=== PATIENT | male | born 1965 | race American Indian/Alaskan Native ===

== ENCOUNTER 2018-05-14 17:37 | Emergency (ER) | payer OTHER ==
[2018-05-14] MEDS: MOTRIN PO ONE (20:41)
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
[2018-05-14] MEDS: BOOSTRIX IM ONE (21:25)
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
[2018-05-14] MEDS ORDERED: TRIPLE ANTIBIOTIC TP ONE (23:42)
[2018-05-15] VITALS: BP 134/90
== END 2018-05-15 | disposition home or self-care (01) ==
LOC: ED 17:37
DX: S13.4XXA Sprain of ligaments of cervical spine, initial encounter (principal); S66.912A Strain of unspecified muscle, fascia and tendon at wrist and hand level, left hand, initial encounter; S46.912A Strain of unspecified muscle, fascia and tendon at shoulder and upper arm level, left arm, initial encounter; S39.012S Strain of muscle, fascia and tendon of lower back, sequela; V49.49XA Driver injured in collision with other motor vehicles in traffic accident, initial encounter; Y93.89 Activity, other specified; Y92.89 Other specified places as the place of occurrence of the external cause; Y99.8 Other external cause status
CPT/HCPCS: 72040; 72100; 90471; 90715; A6250

== ENCOUNTER 2019-02-25 14:26 | Emergency (ER) | payer OTHER ==
--- NOTE | 2019-02-25 15:16 | Emergency Department Report ---
Blank Doc - Documentation Documentation: This is a 53-year-old male that presents with dysuria x2 weeks. Denies any back pain. This initial assessment/diagnostic orders/clinical plan/treatment(s) is/are subject to change based on patient's health status, clinical progression and re- assessment by fellow clinical providers in the ED. Further treatment and workup at subsequent clinical providers discretion. Patient/guardians urged not to elope from the ED as their condition may be serious if not clinically assessed and managed. Initial orders include: 1- Patient sent to [facility] for further evaluation and treatment 2- UA
[2019-02-25 16:15] LABS: Bilirubin,Urine NEG (Negative); Blood,Urine NEG (Negative); Color,Urine Yellow (Yellow); Protein,Urine <15 mg/dL mg/dL (Negative)
[2019-02-25] MEDS ORDERED: XYLOCAINE 1% MPF 5 mL INFILTRATI ONE (17:48)
[2019-02-25] MEDS ORDERED: ROCEPHIN IM ONE (17:48)
[2019-02-25] MEDS ORDERED: ZITHROMAX PO ONE (17:48)
--- NOTE | 2019-02-25 17:52 | Emergency Department Report ---
ED Male HPI - General Chief complaint: Urogenital-Male Stated complaint: BURN WITH URINATING Time Seen by Provider: 02/25/19 15:15 Source: patient Mode of arrival: Ambulatory Limitations: No Limitations - History of Present Illness Initial comments: 53-year-old male presents with dysuria 2 weeks. Patient denies fever assess shows sinus penile discharge, penile lesions, testicular swelling or pain. Patient just states that he has pain whenever he urinates and sometimes without urination. Patient states that his bowel movements are normal with no pain MD Complaint: dysuria -: week(s) Radiation: none Severity: moderate Quality: burning Worsens with: urination, movement denies other symptoms. denies: discharge, swelling, rash, urinary retention, blood in urine, fever, nausea/vomiting, incontinence - Related Data Previous Rx's Medication Instructions Recorded Last Taken Type Cyclobenzaprine [Flexeril] 10 mg PO BID PRN #14 tablet 05/14/18 Unknown Rx Ibuprofen [Motrin 600 MG tab] 600 mg PO Q8H PRN #30 tablet 02/25/19 Unknown Rx Phenazopyridine [Pyridium] 200 mg PO BID #12 tab 02/25/19 Unknown Rx Allergies Allergy/AdvReac Type Severity Reaction Status Date / Time No Known Allergies Allergy Unverified 05/14/18 17:51 ED Review of Systems ROS: Stated complaint: BURN WITH URINATING Other details as noted in HPI Comment: All other systems reviewed and negative ED Past Medical Hx - Past Medical History Additional medical history: Fx. right mandible, High cholesterol - Surgical History Additional Surgical History: right mandible surgery - Social History Smoking Status: Never Smoker Substance Use Type: None - Medications Home Medications: Home Medications Medication Instructions Recorded Confirmed Last Taken Type Cyclobenzaprine [Flexeril] 10 mg PO BID PRN #14 tablet 05/14/18 Unknown Rx Ibuprofen [Motrin 600 MG tab] 600 mg PO Q8H PRN #30 tablet 02/25/19 Unknown Rx Phenazopyridine [Pyridium] 200 mg PO BID #12 tab 02/25/19 Unknown Rx ED Physical Exam - General Limitations: No Limitations General appearance: alert, in no apparent distress - Head Head exam: Present: atraumatic, normocephalic - Eye Eye exam: Present: normal appearance - ENT ENT exam: Present: mucous membranes moist - Neck Neck exam: Present: normal inspection - Respiratory Respiratory exam: Present: normal lung sounds bilaterally. Absent: respiratory distress - Cardiovascular Cardiovascular Exam: Present: regular rate, normal rhythm. Absent: systolic murmur, diastolic murmur, rubs, gallop - GI/Abdominal GI/Abdominal exam: Present: soft, normal bowel sounds - Rectal Rectal exam: Present: deferred - Extremities Exam Extremities exam: Present: normal inspection - Back Exam Back exam: Present: normal inspection - Neurological Exam Neurological exam: Present: alert, oriented X3 - Psychiatric Psychiatric exam: Present: normal affect, normal mood - Skin Skin exam: Present: warm, dry, intact, normal color. Absent: rash ED Course Vital Signs 02/25/19 15:16 Temperature 98.3 F Pulse Rate 74 Respiratory 20 Rate Blood Pressure 145/98 O2 Sat by Pulse 99 Oximetry ED Medical Decision Making - Medical Decision Making 53-year-old male presents with STD possible exposure with dysuria. ED course: Urinalysis obtained, clean Patient received 250 mg of Rocephin, azithromycin 1 g in the ED visit states that he could have an STD Discussed with patient possible STD due to exposure. Discussed with patient findings and treatment Discussed prophylaxis treatment patient is to abstain from sex 7-10 days as treatment. Discussed patient partner knowledge and treatment. Discussed the follow-up with the health department for further STD testing. As well as follow-up with his primary care physician to test for further Patient's alert and oriented times 3. Vital signs are normal patient is in no acute discharge. Patient will be discharged home with instructions. Critical care attestation.: If time is entered above; I have spent that time in minutes in the direct care of this critically ill patient, excluding procedure time. ED Disposition Clinical Impression: Dysuria Disposition: [id number] TO HOME OR SELFCARE Is pt being admited?: No Does the pt Need Aspirin: No Condition: Stable Instructions: Dysuria (ED), Safe Sex (ED), Sexually Transmitted Diseases (ED), Prostatitis (ED) Additional Instructions: Make sure to follow up with the primary care physician as discussed. Take all your medications as you've been prescribed. If you have any worsening symptoms or develop new symptoms please return to ED immediately. Prescriptions: Ibuprofen [Motrin 600 MG tab] 600 mg PO Q8H PRN #30 tablet PRN Reason: Pain Phenazopyridine [Pyridium] 200 mg PO BID #12 tab Referrals: CARBUCCIA,ROD, MD [Primary Care Provider] - 3-5 Days [facility] [Outside] - 3-5 Days Forms: Work/School Release Form(ED) Time of Disposition: 17:53
[2019-02-25 18:08] VITALS: BP 122/71
== END 2019-02-25 18:08 | disposition home or self-care (01) ==
LOC: ED 14:26
DX: R30.0 Dysuria (principal); E78.00 Pure hypercholesterolemia, unspecified
CPT/HCPCS: 81001; 87086; 96372; 99283; J0696

== ENCOUNTER 2020-11-07 14:11 | Emergency (ER) | payer BC, OTHER ==
[2020-11-07 15:15] VITALS: BP 149/96
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
== END 2020-11-07 17:37 | disposition home or self-care (01) ==
LOC: ED 14:11
DX: S39.012A Strain of muscle, fascia and tendon of lower back, initial encounter (principal); Z79.899 Other long term (current) drug therapy; V49.49XA Driver injured in collision with other motor vehicles in traffic accident, initial encounter; Y93.89 Activity, other specified; Y92.488 Other paved roadways as the place of occurrence of the external cause; Y99.8 Other external cause status
CPT/HCPCS: 99282